=== PATIENT | male | born 1955 | race Caucasian/White ===

== ENCOUNTER 2023-10-24 15:29 | Emergency (ER) | payer OTHER, SELFPAY ==
[2023-10-24 15:33] VITALS: BP 231/134
[2023-10-24 15:49] VITALS: BP 219/109
[2023-10-24 15:55] VITALS: BMI 31.0
[2023-10-24 16:01] VITALS: BP 206/106
--- NOTE | 2023-10-24 16:02 | ED.GENMED ---
History of Present Illness
General
Chief Complaint: Nose Bleed
Time Seen by Provider: 10/24/23 15:48
Travel History
Have you had any contact with someone who has COVID-19?: No
Do you have any symptoms of coronavirus? Fever > 100 degrees, chills, cough, shortness of breath, sore throat, loss of taste or smell, muscle aches, or headache?: No
History of Present Illness
History of Present Illness:
Patient presents to the emergency department with left-sided nosebleed. Has happened 4 times today. Each time he preceded by either rubbing his nose or picking his nose. He used Afrin prior to arrival. Patient is not currently on any
anticoagulation though did use Xarelto in the past. Notes history of hypertension, took his medications today. Denies chest pain shortness of breath headache blurry vision or any other symptoms.
Past History
Past History
ED Past Medical History: Arrthythmia
ED Past Surgical History: Cardiac and Orthopedic
Social History
Living: with family
Employment: Employed
Phy Exam
Physical Exam
Physical Exam:
GENERAL APPEARANCE: NAD, well developed/ well nourished
EYES lids/conjunctiva normal
EARS/NOSE/THROAT anterior epistaxis anterior L nare, Mucous membranes moist, uvula midline without oral pharyngeal erythema, exudate or swelling
HEAD/NECK normocephalic atraumatic, neck is supple.
RESPIRATORY respiratory effort normal, speaks in full sentences, no accessory muscle use. Lungs clear to auscultation without rhonchi, wheezes, rales
CARDIAC Regular rate and rhythm, no edema.
ABDOMINAL No distension
MUSCLES/EXTREMITIES No abnormal range of motion, no swelling.
SKIN Warm, pink and dry. No rashes
NEUROLOGICAL Speech is clear and appropriate. Normal level of consciousness. 5/5 strength in all extremities.
PSYCH Normal mood and affect. Judgement/competence is appropriate
Course
Vital Signs
Initial and Last Documented VS:
Initial Vital Signs
Temp Pulse Resp BP Pulse Ox
98.2 F 94 16 231/134 97
10/24/23 15:33 10/24/23 15:33 10/24/23 15:33 10/24/23 15:33 10/24/23 15:33
Last Documented Vital Signs
Temp Pulse Resp BP Pulse Ox
98.9 F 63 16 178/92 96
10/24/23 16:57 10/24/23 16:57 10/24/23 16:57 10/24/23 16:57 10/24/23 16:57
Procedures
Nosebleed
Drug treatment: Lidocaine
Treatment: local pressure applied and Silver nitrate cautery
*Critical Care Note
Total Time (30-74mins, 75-104mins- exclusive of procedures): Not Applicable
ED Attending Note
ED Attending Note
ED Attending Note:
anterior epistaxis
resolved with pressure and silver nitrate cautery
BP noted, patient used afrin prior to arrival
notes hx of white coat syndrome
no s/s of HTN emergency
states he checks BP at home usually 140s systolic
instructed to follow up with his doctor for recheck in the next few days
-
Portions of this chart may have been created with voice recognition software.� Occasional wrong word or��sound alike� substitutions may have occurred due to the inherent limitations of voice recognition software.
Discharge Plan
Departure
Patient Disposition: Home (Routine Discharge)
Date of Disposition: 10/24/23
Time of Disposition: 16:40
Patient with high blood pressure during this ER visit?: Yes
Discharge Problem:
Acute anterior epistaxis
Instructions: Nosebleeds, High Blood Pressure ED
Prescriptions:
No Action
lansoprazole 30 MG capsule,delayed release(DR/EC)
30 mg PO DAILY
Xarelto 20 MG tablet
20 mg PO QPM
trandolapril [Mavik] 4 MG tablet
4 mg PO DAILY
multivitamin 1 EACH tablet
1 ea PO DAILY
ascorbic acid (vitamin C) [Vitamin C] 500 MG tablet
500 mg PO DAILY
hydrochlorothiazide 12.5 MG capsule
25 mg PO DAILY
vitamin B complex 1 TAB tablet
1 tab PO DAILY
cholecalciferol (vitamin D3) [Vitamin D3] 1,000 UNIT capsule
2,000 unit PO DAILY
vitamin E (dl, acetate) 400 UNITS capsule
400 units PO DAILY
metoprolol tartrate 75 MG tablet
25 mg PO BID Qty: 1 0RF
Rx Instructions:
Please note decreased daily dose
Referrals:
Ellis Jacobson MD [Family Provider] -
Interventions
Interventions:
*Risk Screen - Suicide Last Done: 10/24/23 15:59
*General Assessment Last Done: 10/24/23 15:59
*Neglect/Abuse Screening Last Done: 10/24/23 15:59
ED- Fall Risk Assessment Last Done: 10/24/23 16:03
*ED COVID-19 Vaccine History Last Done: 10/24/23 15:33
*Nursing Disposition Last Done: 10/24/23 16:57
ED-EENT Assessment Last Done: 10/24/23 16:02
Discharge Date and Time
Discharge Date/Time: 10/24/23 17:01
Print Language: ESTONIAN
[2023-10-24 16:57] VITALS: BP 178/92
== END 2023-10-24 17:01 | disposition home or self-care (01) ==
LOC: EMR 15:29
PROVIDERS: EMERGENCY PHYSICIAN Emergency Medicine; FAMILY PHYSICIAN Internal Medicine
DX: R04.0 Epistaxis (principal); I10 Essential (primary) hypertension; Z91.048 Other nonmedicinal substance allergy status
CPT/HCPCS: 99283; 30901

== ENCOUNTER 2024-06-27 06:32 | Day surgery (SDC) | payer OTHER, SELFPAY | END 2024-06-27 13:42 | disposition home or self-care (01) | LOC: GI 06:32 | PROVIDERS: ATTENDING PHYSICIAN Specialist | DX: K22.70 Barrett's esophagus without dysplasia (principal); K44.9 Diaphragmatic hernia without obstruction or gangrene; Z98.890 Other specified postprocedural states | CPT/HCPCS: 43239; 88305 ==

== ENCOUNTER 2024-10-30 12:07 | Emergency (ER) | payer OTHER, SELFPAY ==
--- NOTE | 2024-10-30 16:28 | ED.GENMED ---
History of Present Illness
General
Chief Complaint: DVT/Possible Blood Clot
Source: patient
Exam Limitations: none
Time Seen by Provider: 10/30/24 16:27
Nursing documentation reviewed up to this point in time: agreed with
History of Present Illness
History of Present Illness:
Patient is a 69-year-old male who presents to the ER complaining of left leg swelling for the past several days. He was recently on vacation in [place] for 17 days and got back at 2: 30 am this morning. He does report that he does have a
history of previous DVT and when the swelling started in his left leg he felt that this was similar. He denies any associated shortness of breath/fever.. He does have a history of A-fib however has not been in A-fib for years since he had cardiac
ablation. He was on Xarelto 2-1/2 years ago when he was in A-fib and a Xarelto this morning thinking he had a DVT.
Past History
Past History
ED Past Medical History: Arrthythmia
ED Past Surgical History: Cardiac and Orthopedic
Social History
Living: with family
Employment: Employed
Review of Systems
Review of Systems
Allergies reviewed?: Yes
All Other Systems: ROS reviewed and negative except as documented in HPI and ROS
Phy Exam
General Physical Exam
General Presentation: no apparent distress
General age: appears stated age
General Skin: warm and dry
General Habitus: normal
General Mental: alert
General Hydration: appears well hydrated
Cardiovascular Exam
Cardiovascular Exam: regular rate/rhythm, no murmur and normal peripheral pulses
Pulmonary Exam
Pulmonary Exam: lungs clear and no respiratory distress
Neurological Exam
Neurological Exam: alert and oriented x3
Musculoskeletal Exam
Musculoskeletal Exam: other (Left leg with strong pulses swelling from knee down to foot; normal distal sensation)
Skin Exam
Skin Exam: normal color and warm/dry
Psychiatric Exam
Psychiatric Exam: normal mood/affect
Course
Orders/Labs/Results
Orders:
Orders
10/30/24 12:11
US Periph Venous LOWER Ext LT Urgent
Comment:
Reason For Exam: lle swelling and pain
10/30/24 16:47
CBC/With Diff [Complete Blood Count/With Diff] Urgent
Comprehensive Metabolic Panel Urgent
Abnormal Lab Results
10/30/24
16:47
RBC 4.56 L 10^6/uL
(4.70-6.10)
MCV 94.1 H fL
(80.0-94.0)
MCH 32.0 H pg
(27.0-31.0)
Absolute Monos (auto) 0.7 H 10^3/uL
(0.1-0.6)
Lymphocytes % 19.4 L %
(20.5-51.1)
Creatinine 0.6 L mg/dL
(0.7-1.3)
Glucose 104 H mg/dl
(70-99)
10/30/24 16:47
10/30/24 16:47
Vital Signs
Initial and Last Documented VS:
Initial Vital Signs
Pulse Resp Pulse Ox
78 18 97
10/30/24 12:08 10/30/24 12:08 10/30/24 12:08
Last Documented Vital Signs
Temp Pulse Resp BP Pulse Ox
98.8 F 65 18 158/111 100
10/30/24 17:35 10/30/24 17:35 10/30/24 17:35 10/30/24 17:35 10/30/24 17:35
MDM/Problems Addressed
Differential Diagnosis Includes:
Not limited to DVT, dependent edema
MDM/Problems Addressed:
Patient is a 69-year-old male presents with lower extremity swelling recent travel to the [facility] for 17 days. He presents awake alert no acute distress not short of breath; history of A-fib however has not been in A-fib in years and regular rate
and rhythm on exam. He is in no acute distress ultrasound does confirm occlusive thrombus extending from the distal femoral vein through the calf veins.
Patient was on Xarelto when he had A-fib he did take a dose this morning will DC on Xarelto for DVT guidelines. d/c with patient close outpatient follow-up with PCP and return precautions given
Chronic conditions affecting care:
hx of dvt /afib in the past
*Radiology
Radiology exam reviewed: radiology read reviewed
*Pulse Oximetry
SaO2: 97
Oxygen Mode of Delivery: Room air
Patient hypoxic: no (97)
*Critical Care Note
Total Time (30-74mins, 75-104mins- exclusive of procedures): Not Applicable
ED Attending Note
-
Portions of this chart may have been created with voice recognition software.� Occasional wrong word or��sound alike� substitutions may have occurred due to the inherent limitations of voice recognition software.
Discharge Plan
Departure
Patient Disposition: Home (Routine Discharge)
Date of Disposition: 10/30/24
Time of Disposition: 17:26
Patient with high blood pressure during this ER visit?: Yes
Condition: Fair
Covid-19: Not Applicable
Discharge Problem:
DVT (deep venous thrombosis)
Instructions: Deep Vein Thrombosis (Blood Clots in the Legs) (DC), BLOOD PRESSURE
Prescriptions:
New
Xarelto DVT-PE Treat 30d Start 15 mg (42)- 20 mg (9) tablets,dose pack
See Rx Instructions .ROUTE .COMPLEX Qty: 51 0RF
Rx Instructions:
15 mg twice a day with food for 21 days followed by 20 mg once daily with food
No Action
lansoprazole 30 MG capsule,delayed release(DR/EC)
30 mg PO DAILY
Xarelto 20 MG tablet
20 mg PO QPM
trandolapril [Mavik] 4 MG tablet
4 mg PO DAILY
multivitamin 1 EACH tablet
1 ea PO DAILY
ascorbic acid (vitamin C) [Vitamin C] 500 MG tablet
500 mg PO DAILY
hydrochlorothiazide 12.5 MG capsule
25 mg PO DAILY
vitamin B complex 1 TAB tablet
1 tab PO DAILY
cholecalciferol (vitamin D3) [Vitamin D3] 1,000 UNIT capsule
2,000 unit PO DAILY
vitamin E (dl, acetate) 400 UNITS capsule
400 units PO DAILY
metoprolol tartrate 75 MG tablet
25 mg PO BID Qty: 1 0RF
Rx Instructions:
Please note decreased daily dose
Referrals:
Ellis Jacobson MD [Family Provider, Internal Medicine]
Activity Restrictions/Additional Instructions:
As documented take Xarelto as discussed(15 mg twice daily with food for 21 days followed by 20 mg once daily with food).
this medication was sent to your pharmacy. Please follow-up with your family doctor in the next 2 days for reevaluation. Return if any worsening of symptoms including shortness of breath.
Interventions
Interventions:
*General Assessment Last Done: 10/30/24 16:05
ED- Cardiac Assessment Last Done: 10/30/24 16:05
ED- Pulmonary Assessment Last Done: 10/30/24 16:05
ED-Peripheral Vascular Assessment Last Done: 10/30/24 16:05
ED-Skin Assessment Last Done: 10/30/24 16:05
Discharge Date and Time
Print Language: ANGUILLAN
[2024-10-30 17:02] LABS: % Basophils 0.8 % (0-2); % Eosinophils 4.6 % (0-6); % Immature Granulocytes 0.4 % (0-0.5); % Lymphocytes 19.4 % (20.5-51.1); % Neutrophils 65.8 % (42.2-75.2); Absolute Basophils 0.1 10^3/uL (0-0.2); Absolute Eosinophils 0.4 10^3/uL (0-0.7); Absolute Lymphocytes 1.6 10^3/uL (1.2-3.4); Absolute Monocytes 0.7 10^3/uL (0.1-0.6); Absolute Neutrophils 5.3 10^3/uL (1.4-6.5); Hematocrit 42.9 % (39.0-52.0); Hemoglobin 14.6 g/dL (13.0-18.0); Mean Corpuscular Volume 94.1 fL (80.0-94.0); Mean Platelet Volume 9.1 fL (7.4-10.4); Nucleated Red Blood Cells % 0 % (-); Platelet Count 229 10^3/uL (130-400); Red Blood Cell Count 4.56 10^6/uL (4.70-6.10); Red Cell Dist. Width 13.3 % (11.5-14.5)
[2024-10-30 17:21] LABS: ALT (SGPT) 21 U/L (0-50); AST (SGOT) 31 U/L (17-59); Albumin 4.6 g/dl (3.5-5.0); Alkaline Phosphatase 74 U/L (38-126); Blood Urea Nitrogen 10 mg/dl (9-20); Calcium 9.9 mg/dl (8.4-10.2); Carbon Dioxide 29 mmol/L (22-30); Chloride 104 mmol/L (98-107); Glucose 104 mg/dl (70-99); Potassium 4.1 mmol/L (3.5-5.1); Sodium 136 mmol/L (135-145); Total Protein 7.8 g/dl (6.3-8.2); eGFR > 60.00
[2024-10-30 17:35] VITALS: BP 158/111
== END 2024-10-30 17:36 | disposition home or self-care (01) ==
LOC: EMR 12:07
PROVIDERS: Nurse Practitioner; EMERGENCY PHYSICIAN Emergency Medicine; FAMILY PHYSICIAN Internal Medicine
DX: I82.412 Acute embolism and thrombosis of left femoral vein (principal); I48.91 Unspecified atrial fibrillation; Z86.718 Personal history of other venous thrombosis and embolism; Z79.01 Long term (current) use of anticoagulants
CPT/HCPCS: 99284; 80053; 85025; 93971

== ENCOUNTER → 2024-11-21 08:31 | Outpatient (REF) | payer OTHER, SELFPAY | LOC: HWRAD 08:31 | PROVIDERS: ATTENDING PHYSICIAN Internal Medicine | DX: I82.432 Acute embolism and thrombosis of left popliteal vein (principal) | CPT/HCPCS: 71046 ==

== ENCOUNTER → 2024-12-19 12:53 | Outpatient (REF) | payer OTHER, SELFPAY | LOC: HWRCS 12:53 | PROVIDERS: ATTENDING PHYSICIAN Internal Medicine Cardiovascular Disease; FAMILY PHYSICIAN Internal Medicine | DX: I48.91 Unspecified atrial fibrillation (principal) | CPT/HCPCS: 93306 ==

== ENCOUNTER → 2025-01-09 14:39 | Outpatient (REF) | payer OTHER, SELFPAY | LOC: HWRAD 14:39 | PROVIDERS: ATTENDING PHYSICIAN Internal Medicine | DX: R07.81 Pleurodynia (principal); T14.90XA Injury, unspecified, initial encounter | CPT/HCPCS: 71101; 72070; 72110 ==

== ENCOUNTER → 2025-02-08 10:47 | Outpatient (REF) | payer OTHER, SELFPAY | LOC: RAD 10:47 | PROVIDERS: ATTENDING PHYSICIAN Internal Medicine | DX: I82.432 Acute embolism and thrombosis of left popliteal vein (principal) | CPT/HCPCS: 93971 ==